=== PATIENT | female | born 1955 ===

== ENCOUNTER → 2019-06-25 | Outpatient (CLI) | payer MEDICARE, BC ==
--- NOTE | 2019-06-27 10:41 | PE ---
EXAMINATION TYPE: PET CT fusion skull to thigh DATE OF EXAM: 06/25/2019 COMPARISON: Report from outside CT chest dated 06/15/2019. HISTORY: Solitary pulmonary nodule. No prior biopsy, no prior radiation, no prior surgical interventi on, no prior chemotherapy. No current diagnosis of lung cancer. TECHNIQUE: Following the intravenous administration of 12.21 mCi of F-18 FDG, whole body images are performed from the skull base to the midthigh. Images are reviewed on the computer in the coronal, a xial, and sagittal planes. Reconstructed rotating images are created on independent workstation and reviewed on the computer. A localization and attenuation correction CT is performed in conjunction with the PET scan. SCAN: Initial treatment strategy FINDINGS: Mediastinal background: 1.4 Abdominal background: 3.32 SKULL BASE AND NECK: No suspicious hypermetabolic uptake. CHEST, MEDIASTINUM, AND HILAR REGION: The previously seen numerous bilateral pulmonary nodules are hy permetabolic and most compatible with neoplasm. The primary mass in the left lower lobe is contiguous with segmental bronchi and amenable to bronchoscopy. This is measured at 3.1 x 3.0 cm on series 3 im age 89 at the maximum SUV of 7.58. There are at least 9 pulmonary nodules on the left with the second largest measuring 1.8 cm and the left lower lobe demonstrating a maximum SUV of 6.44. There are grea ter than 20 pulmonary nodules on the right with the largest in the right upper lobe anteriorly measur ing 2.8 cm with a maximum SUV of 2.5. These all appear rounded with a cannonball appearance indicativ e of metastasis. There is abnormal hypermetabolic mediastinal adenopathy with a pretracheal lymph node measuring 1.3 c m in short axis on image 74 demonstrating a maximum SUV of 4.11. Small hypermetabolic prevascular lym ph nodes that are subcentimeter demonstrating a maximum SUV of 3.48. Hypermetabolic subcarinal lymph node measuring 1.6 cm in short axis with a maximum SUV of 4.45. A right paratracheal lymph node measu ring 1.2 cm in short axis on image 79 with a maximum SUV of 4.22. High mediastinal adenopathy is seen as well as small lymph nodes inferior to the left lobe of the thyroid with a maximum SUV of and a le ft supraclavicular lymph node measuring 8 mm in short axis on image 63 with a maximum SUV of 5.05. ABDOMEN AND PELVIS: The previously seen 2.5 cm left adrenal gland nodule demonstrates a maximum SUV o f 2.22. Hypermetabolic activity along the medial aspect of the right inferior hepatic lobe is suspect ed to represent misregistration from the right renal collecting system (maximum SUV of 4.66). 1.2 cm short axis right external iliac chain lymph node marked on image 206 is hypermetabolic with a maximum SUV of 2.74. OSSEOUS STRUCTURES: No suspicious hypermetabolic activity. 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 Visualized paranasal sinuses and ma stoid air cells are well aerated. Anterior cervical fusion device is seen. Median sternotomy wires ar e present. There is a small hiatal hernia. Mild atherosclerosis of the thoracic aorta. The main pulmo nary artery is mildly enlarged measuring 3.1 cm, suggesting pulmonary arterial hypertension clinicall y. The heart is upper limits of normal size. There is an exophytic 8mm superior pole left renal cyst. Left adrenal nodule as described above. Moderate to severe atherosclerosis of the abdominal aorta an d its branches. Very small fat filled periumbilical hernia. There are bilateral ovarian lesions. On t he left the ovarian lesion measures 7.4 cm and is predominantly cystic. Peripheral rind could represe nt ovarian tissue or mural nodule. Right ovarian lesion measures 2.4 cm and is also cystic. Postsurgi aline change of the left hip and lumbar spine. Sclerotic focus of the left iliac bone is nonspecific me asuring 7 mm and is currently hypometabolic. This is marked on image 201. IMPRESSION: 1. 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 2. Previously described 2.5 cm left adrenal gland nodule is below abdominal background but does remai n indeterminant as the average Hounsfield unit is not fitting of a benign adenoma. MRI abdomen with c ontrast (adrenal mass protocol) is recommended for further characterization. 3. Sclerotic lesion of the left iliac bone is hypometabolic and likely represents a bone island. 4. Bilateral ovarian lesions, the largest on the left measuring 7.4 cm. Pelvic ultrasound is recommen ded for further characterization.
== END | disposition home or self-care (01) ==
LOC: RADPETMAIN 11:15
PROVIDERS: ATTEND Internal Medicine Pulmonary Disease
DX: R91.8 Other nonspecific abnormal finding of lung field (principal); D35.02 Benign neoplasm of left adrenal gland; M89.8X8 Other specified disorders of bone, other site; N83.9 Noninflammatory disorder of ovary, fallopian tube and broad ligament, unspecified
CPT/HCPCS: 78815; A9552